=== PATIENT | male | born 1980 | race Caucasian/White ===

== ENCOUNTER → 2022-02-06 11:06 | Outpatient (BNVA) | payer OTHER, SELFPAY | PROVIDERS: Family Provider Nurse Practitioner Family; PCP Nurse Practitioner Family; Visit Provider Emergency Medicine | DX: R68.89 Other general symptoms and signs (principal); W57.XXXA Bitten or stung by nonvenomous insect and other nonvenomous arthropods, initial encounter | CPT/HCPCS: 86618; 86666; 86757 ==

== ENCOUNTER → 2022-10-09 11:59 | Outpatient (BNVA) | payer OTHER, SELFPAY | PROVIDERS: Family Provider Nurse Practitioner Family; Visit Provider Emergency Medicine | DX: J00 Acute nasopharyngitis [common cold] (principal); J04.0 Acute laryngitis | CPT/HCPCS: 87071; 87880 ==

== ENCOUNTER 2024-11-30 20:00 | Outpatient (CLI) | payer OTHER, SELFPAY | END 2024-11-30 20:01 | disposition home or self-care (01) | LOC: SLEEP 23:43 | PROVIDERS: Family Provider Nurse Practitioner Family; Visit Provider Nurse Practitioner Family | DX: R06.83 Snoring (principal); G47.36 Sleep related hypoventilation in conditions classified elsewhere | CPT/HCPCS: 95810 ==